=== PATIENT | female | born 1995 | race American Indian/Alaskan Native ===

== ENCOUNTER 2017-04-28 10:32 | Emergency (ER) | payer OTHER ==
[2017-04-28 10:46] VITALS: BMI 18.8
[2017-04-28 10:51] VITALS: TEMP 98.9
[2017-04-28] MEDS ORDERED: Bacitracin 500 Units/gm Oint Foilpak UD ONE (11:06)
[2017-04-28 11:10] LABS: HCG,QUALITATIVE URINE NEGATIVE (NEGATIVE)
[2017-04-28 11:14] LABS: SQUAMOUS EPITHIAL 10 /hpf (0-5); URINE BILIRUBIN NEGATIVE (NEGATIVE); URINE BLOOD NEGATIVE (NEGATIVE); URINE CLARITY Clear (Clear); URINE COLOR Yellow (YELLOW); URINE GLUCOSE (UA) NORMAL (Normal); URINE LEUKOCYTE ESTERASE NEG Leu/uL (Negative); URINE NITRATE NEGATIVE (NEGATIVE); URINE PROTEIN NEGATIVE (NEGATIVE); URINE UROBILINOGEN NORMAL mg/dL (0.2-1.0)
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
[2017-04-28 11:41] VITALS: BP 119/71; PULSE 72; RESP 18
[2017-04-28 11:52] VITALS: O2SAT 98
== END 2017-04-28 11:42 | disposition home or self-care (01) ==
LOC: C.ER 10:32
DX: N39.0 Urinary tract infection, site not specified (principal); S40.812A Abrasion of left upper arm, initial encounter; S40.811A Abrasion of right upper arm, initial encounter; Y04.2XXA Assault by strike against or bumped into by another person, initial encounter; Y92.9 Unspecified place or not applicable

== ENCOUNTER 2018-09-30 14:13 | Emergency (ER) | payer OTHER ==
[2018-09-30 14:13] VITALS: BMI 18.8
[2018-09-30 14:18] VITALS: RESP 20
[2018-09-30 15:16] LABS: HCG,QUALITATIVE URINE NEGATIVE (NEGATIVE)
[2018-09-30 15:17] LABS: SQUAMOUS EPITHIAL 7 /hpf (0-5); URINE BILIRUBIN 1+ (NEGATIVE); URINE BLOOD NEGATIVE (NEGATIVE); URINE CLARITY Clear (Clear); URINE COLOR Yellow (YELLOW); URINE GLUCOSE (UA) NORMAL (Normal); URINE LEUKOCYTE ESTERASE NEG Leu/uL (Negative); URINE PROTEIN 1+ mg/dL (NEGATIVE)
[2018-09-30] MEDS ORDERED: Sodium Chloride 0.9% 1,000 ML IV STA (15:23)
[2018-09-30] MEDS ORDERED: Sodium Chloride 0.9% 1,000 ML ONE ×2 (15:38→17:15)
[2018-09-30 16:00] LABS: BASO % 0.7 % (0.0-2.0); EOS % 0.2 % (0.0-4.0); HEMOGLOBIN 13.1 g/dL (11.0-16.0); LYMPH # 0.7 K/uL (1.0-4.3); MEAN CELL VOLUME 88.4 fL (81.0-99.0); MEAN CORPUSCULAR HEMOGLOBIN 30.2 pg (27.0-31.0); MEAN CORPUSCULAR HGB CONC 34.1 g/dL (33.0-37.0); MEAN PLATELET VOLUME 7.6 fL (7.2-11.7); MONO # 0.6 K/uL (0.0-0.8); MONO % 8.2 % (0.0-10.0); NEUT % 80.9 % (50.0-75.0); RBC 4.36 Mil/uL (3.80-5.20); RED CELL DISTRIBUTION WIDTH 13.5 % (11.5-14.5); WHITE BLOOD COUNT 7.5 K/uL (4.8-10.8)
[2018-09-30 16:17] LABS: ALB/GLOB RATIO 1.4 (1.0-2.1); ALBUMIN 4.4 g/dL (3.5-5.0); ALT/SGPT 30 U/L (9-52); AMYLASE 88 U/L (30-110); AST/SGOT 27 U/L (14-36); BLOOD UREA NITROGEN 17 mg/dL (7-17); CALCIUM 8.9 mg/dl (8.6-10.4); GFR NON-AFRICAN AMERICAN > 60; LIPASE 62 U/L (23-300)
--- NOTE | 2018-09-30 16:33 | C.PDOC ---
History Of Present Illness 23 year old female presents to the ED complaining of generalized body aches, abdominal pain, nausea, vomiting, and one episode of diarrhea for one day. Reports she went to [facility] yesterday and was given Zofran by kettle coordinator but left without seeing because she had been waiting 6 hours. Denies any fever, chills, cough, shortness of breath, urinary symptoms, or back pain. Time Seen by Provider: 09/30/18 14:50 Chief Complaint (Nursing): Flu-like Symptoms Past Medical History Vital Signs: Last Vital Signs Temp 98 F 09/30/18 14:15 Pulse 89 09/30/18 14:15 Resp 20 09/30/18 14:15 BP 100/60 09/30/18 14:15 Pulse Ox 100 09/30/18 14:15 Family History: States: Unknown Family Hx - Social History Hx Tobacco Use: No Hx Alcohol Use: No Hx Substance Use: Yes - Immunization History Hx Tetanus Toxoid Vaccination: No Hx Influenza Vaccination: Yes Hx Pneumococcal Vaccination: No Review Of Systems Except As Marked, All Systems Reviewed And Found Negative. Constitutional: Positive for: Other (generalized body aches ). Negative for: Fever, Chills ENT: Negative for: Ear Pain, Throat Pain Respiratory: Negative for: Shortness of Breath Gastrointestinal: Positive for: Nausea, Vomiting, Abdominal Pain, Diarrhea Genitourinary: Negative for: Dysuria, Hematuria Musculoskeletal: Negative for: Back Pain Physical Exam - Physical Exam Appears: Non-toxic, Other (ill appearing, weak) Skin: Warm, Dry, No Rash Head: Normacephalic Eye(s): bilateral: Normal Inspection Nose: Normal Oral Mucosa: Dry Neck: Normal ROM, Supple Chest: Symmetrical Cardiovascular: Rhythm Regular Respiratory: Normal Breath Sounds, No Rales, No Rhonchi, No Wheezing Gastrointestinal/Abdominal: Soft, Tenderness (diffused tenderness), No Guarding, No Rebound Neurological/Psych: Oriented x3, Normal Speech Gait: Steady ED Course And Treatment - Laboratory Results Result Diagrams: 09/30/18 15:46 09/30/18 15:46 O2 Sat by Pulse Oximetry: 100 (RA) Pulse Ox Interpretation: Normal Progress Note: Patient given IV fluids and Zofran. Blood and urine collected and sent to lab for analysis. On reassessment, patient is resting comfortably, abdomen remains soft, and patient is tolerating PO. Patient feels comfortable going home. Patient will be discharged home. Disposition - Disposition Referrals: Raudel Ryder MD [Staff Provider] - Disposition: HOME/ ROUTINE Disposition Time: 18:01 Condition: STABLE Additional Instructions: Follow up with PMD within 1-2 days. Return to ED if feel worse. 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 - Scribe Statement The provider has reviewed the documentation as recorded by the Scribe Erica Dinh All medical record entries made by the Scribe were at my direction and personally dictated by me. I have reviewed the chart and agree that the record accurately reflects my personal performance of the history, physical exam, medical decision making, and the department course for this patient. I have also personally directed, reviewed, and agree with the discharge instructions and disposition.
[2018-09-30] MEDS ORDERED: Sodium Chloride 0.9% 1,000 ML IV ONE (17:11)
[2018-09-30 18:12] VITALS: BP 105/67; PULSE 78; TEMP 99
[2018-09-30 18:45] VITALS: O2SAT 100
== END 2018-09-30 18:33 | disposition home or self-care (01) ==
LOC: C.ER 14:13
DX: B34.9 Viral infection, unspecified (principal)
CPT/HCPCS: 80053; 81001; 82150; 82550; 83605; 83690; 84703; 85025; 87804; 96361; 96374; 99284; J2405; J7030

== ENCOUNTER 2018-10-28 06:36 | Emergency (ER) | payer OTHER | END 2018-10-28 11:39 | disposition home or self-care (01) | LOC: C.ER 06:36 ==

== ENCOUNTER 2019-02-24 16:41 | Emergency (ER) | payer OTHER ==
[2019-02-24 16:59] VITALS: RESP 18; O2SAT 100; BMI 19.5
[2019-02-24 17:37] LABS: BASO % 0.5 % (0.0-2.0); EOS % 0.4 % (0.0-4.0); HEMOGLOBIN 11.5 g/dL (11.0-16.0); LYMPH # 1.2 K/uL (1.0-4.3); LYMPH % 17.6 % (20.0-40.0); MEAN CELL VOLUME 89.2 fL (81.0-99.0); MEAN CORPUSCULAR HGB CONC 33.6 g/dL (33.0-37.0); MEAN PLATELET VOLUME 7.6 fL (7.2-11.7); MONO # 0.6 K/uL (0.0-0.8); MONO % 8.4 % (0.0-10.0); NEUT % 73.1 % (50.0-75.0); NRBC % 0.1 % (0.0-2.0); RBC 3.82 Mil/uL (3.80-5.20); RED CELL DISTRIBUTION WIDTH 12.7 % (11.5-14.5); WHITE BLOOD COUNT 6.8 K/uL (4.8-10.8)
[2019-02-24] MEDS ORDERED: Sodium Chloride 0.9% 1,000 ML IV ONE (17:39)
[2019-02-24 17:47] LABS: HCG,QUALITATIVE URINE NEGATIVE (NEGATIVE)
[2019-02-24 17:49] LABS: ALB/GLOB RATIO 1.3 (1.0-2.1); ALBUMIN 4.1 g/dL (3.5-5.0); ALT/SGPT 12 U/L (9-52); AST/SGOT 19 U/L (14-36); BLOOD UREA NITROGEN 10 mg/dL (7-17); CALCIUM 9.5 mg/dl (8.6-10.4); GFR NON-AFRICAN AMERICAN > 60; LIPASE 54 U/L (23-300)
[2019-02-24 17:51] LABS: SQUAMOUS EPITHIAL 3 /hpf (0-5); URINE BILIRUBIN NEGATIVE (NEGATIVE); URINE BLOOD NEGATIVE (NEGATIVE); URINE CLARITY Hazy (Clear); URINE COLOR Yellow (YELLOW); URINE GLUCOSE (UA) NORMAL (Normal); URINE HYALINE CAST 0-2 /lpf (0-2); URINE LEUKOCYTE ESTERASE NEG Leu/uL (Negative); URINE PROTEIN NEGATIVE (NEGATIVE)
[2019-02-24] MEDS ORDERED: Sodium Chloride 0.9% 1,000 ML ONE (18:04)
--- NOTE | 2019-02-24 18:17 | C.PDOC ---
History Of Present Illness 24 year old female presents to the ED complaining of right lower quadrant pain for 4 days. Pain is described as soreness and she reports it radiates to her back sometimes. Patient reports history of similar pain in the past when she was diagnosed with an ovarian cyst; patient had laparoscopic cyst removal. She denies seeing OBGYN for current complaints. Patient also denies nausea, vomiting, diarrhea, dysuria, hematuria, fever. Time Seen by Provider: 02/24/19 17:09 Chief Complaint (Nursing): Abdominal Pain History Per: Patient History/Exam Limitations: no limitations Onset/Duration Of Symptoms: Days (4) Current Symptoms Are (Timing): Still Present Severity: Mild Location Of Pain/Discomfort: RLQ Quality Of Discomfort: "Pain" Associated Symptoms: denies: Fever, Chills, Nausea, Vomiting, Diarrhea, Urinary Symptoms Past Medical History Reviewed: Historical Data, Nursing Documentation, Vital Signs Vital Signs: Last Vital Signs Temp 99.2 F 02/24/19 16:46 Pulse 84 02/24/19 16:46 Resp 18 02/24/19 16:46 BP 109/70 02/24/19 16:46 Pulse Ox 100 02/24/19 16:46 Primary Care Provider: Tee Muñiz - Medical History PMH: No Chronic Diseases Other Surgeries: Hx of surgeries - lapascopic removal of ovarian cyst Family History: States: No Known Family Hx - Social History Hx Tobacco Use: No Hx Alcohol Use: No Hx Substance Use: Yes (occassionally) - Immunization History Hx Tetanus Toxoid Vaccination: No Hx Influenza Vaccination: No Hx Pneumococcal Vaccination: No Review Of Systems Constitutional: Negative for: Fever, Chills Gastrointestinal: Positive for: Abdominal Pain. Negative for: Nausea, Vomiting, Diarrhea Genitourinary: Negative for: Dysuria, Hematuria Musculoskeletal: Positive for: Back Pain Physical Exam - Physical Exam Appears: Well, Non-toxic, No Acute Distress Skin: Warm, Dry, No Rash Head: Normacephalic Eye(s): bilateral: Normal Inspection Oral Mucosa: Moist Neck: Supple Cardiovascular: Rhythm Regular Respiratory: Normal Breath Sounds, No Rales, No Rhonchi, No Wheezing Gastrointestinal/Abdominal: Bowel Sounds, Soft, Tenderness (RLQ/adnexal mild tenderness to palpation), No Guarding, No Rebound Back: No CVA Tenderness Neurological/Psych: Oriented x3 Gait: Steady ED Course And Treatment - Laboratory Results Result Diagrams: 02/24/19 17:33 02/24/19 17:33 Lab Results: Total Bilirubin 0.3 mg/dL (0.2-1.3) 02/24/19 17:33 AST 19 U/L (14-36) 02/24/19 17:33 ALT 12 U/L (9-52) 02/24/19 17:33 Alkaline Phosphatase 55 U/L (38-126) 02/24/19 17:33 Total Protein 7.5 g/dL (6.3-8.3) 02/24/19 17:33 Albumin 4.1 g/dL (3.5-5.0) 02/24/19 17:33 Globulin 3.3 gm/dL (2.2-3.9) 02/24/19 17:33 Albumin/Globulin Ratio 1.3 (1.0-2.1) 02/24/19 17:33 Lipase 54 U/L (23-300) 02/24/19 17:33 Urine Color Yellow (YELLOW) 02/24/19 17:33 Urine Clarity Hazy (Clear) 02/24/19 17:33 Urine pH 7.0 (5.0-8.0) 02/24/19 17:33 Ur Specific Manning 1.019 (1.003-1.030) 02/24/19 17:33 Urine Protein Negative mg/dL (NEGATIVE) 02/24/19 17:33 Urine Glucose (UA) Normal mg/dL (Normal) 02/24/19 17:33 Urine Ketones Negative mg/dL (NEGATIVE) 02/24/19 17:33 Urine Blood Negative (NEGATIVE) 02/24/19 17:33 Urine Nitrate Negative (NEGATIVE) 02/24/19 17:33 Urine Bilirubin Negative (NEGATIVE) 02/24/19 17:33 Urine Urobilinogen 2.0 mg/dL (0.2-1.0) H 02/24/19 17:33 Ur Leukocyte Esterase Neg Nadine/uL (Negative) 02/24/19 17:33 Urine WBC (Auto) 1 /hpf (0-5) 02/24/19 17:33 Urine RBC (Auto) 1 /hpf (0-3) 02/24/19 17:33 Ur Squamous Epith Cells 3 /hpf (0-5) 02/24/19 17:33 Hyaline Casts 0-2 /lpf (0-2) 02/24/19 17:33 Urine HCG, Qual Negative (NEGATIVE) 02/24/19 17:33 Urine HCG, Qual Negative (NEGATIVE) 02/24/19 17:33 O2 Sat by Pulse Oximetry: 100 (RA) Pulse Ox Interpretation: Normal Progress Note: Blood work, UA, US of abdomen and transvaginal US ordered. Patie nt given IV NS bolus, IV Toradol. Disposition - Disposition Disposition Time: 19:00 Condition: STABLE Forms: [employer] (Citizen [place]) - Clinical Impression Clinical Impression: RLQ abdominal pain - Scribe Statement The provider has reviewed the documentation as recorded by the Scribe Erica Dinh All medical record entries made by the Scribe were at my direction and personally dictated by me. I have reviewed the chart and agree that the record accurately reflects my personal performance of the history, physical exam, medical decision making, and the department course for this patient. I have also personally directed, reviewed, and agree with the discharge instructions and disposition. Physician Patient Turnover Patient Signed Over To: Imelda Ruiz Handoff Comments: pending ultrasounds of pelvis and RLQ
[2019-02-24 20:47] VITALS: BP 109/65; PULSE 79; TEMP 98.6
--- NOTE | 2019-02-25 09:24 | US ---
Date of service: 02/24/2019 PROCEDURE: Right lower quadrant/limited abdominal ultrasound. HISTORY: Right lower quadrant pain, evaluate appendix. COMPARISON: February 24, 2019. Pelvic ultrasound reported separately TECHNIQUE: Graded compression technique. FINDINGS: Appendix: Not visualized. Free fluid in the right lower quadrant. Although incompletely visualized this measures approximately 3.3 x 8 cm. No masses or other significant findings right lower quadrant. Peristalsing bowel noted. Incidental finding(s): Complex mass/fluid identified in the pelvis/right adnexa. IMPRESSION: Nondiagnostic study of the appendix which is not visible on the current study. Right lower quadrant and pelvic fluid. Incompletely visualized right adnexal mass. Concordant findings (preliminary report) provided by [facility].
--- NOTE | 2019-02-25 09:30 | US ---
Date of service: 02/24/2019 HISTORY: right pelvic pain r/o torsion COMPARISON: February 24, 2019. Right lower quadrant abdominal ultrasound. 10/28/2018 pelvic ultrasound. Summary of findings on the comparison examination: Complex cyst right ovary. Apparent dermoid. TECHNIQUE: Transabdominal, transvaginal. Real -time technique with 2D, duplex and color Doppler. FINDINGS: UTERUS: Measures 3.6 x 8.9 x 4.8 cm. Normal in size and appearance. No fibroid or other mass lesion seen. ENDOMETRIUM: Measures 6.0 mm in diameter. No ultrasound findings to suggest gestational sac, fluid, debris, mass or polyp or other pathologic process within the endometrium. CERVIX: No cervical abnormality identified. RIGHT OVARY: Complex right adnexal mass 10.7 x 15.2 x 14.97 cm. This is increased considerably since the prior study. There solid and cystic components is well as ultrasound findings consistent with known dermoid. The largest cystic component measures 9.8 x 7 1 x 10.4 cm. The adjacent smaller cystic component measures 6.1 x 7 x 6.2 cm. LEFT OVARY: Measures 2.4 x 4.1 x 3.3 cm. No solid mass. Normal flow. Complex cyst or adjacent follicles 1.2 x 1.7 cm noted. FREE FLUID: Free fluid demonstrated, incompletely visualized. There appears to be debris as well within the fluid. OTHER FINDINGS: None. IMPRESSION: 1. Marked increase in size of the right adnexa with complex cystic components and a smaller more solid component consistent with dermoid. The substantial increase in side suggests superimposed acute process. Tubo-ovarian abscess, hydrosalpinx should be considered. 2. Unremarkable uterus and endometrial echo complex. 3. Complex free fluid identified. 4. Additional benign and/or incidental findings described above. Concordant findings (preliminary report) provided by [facility].
== END 2019-02-24 21:35 | disposition home or self-care (01) ==
LOC: C.ER 16:41
DX: R10.31 Right lower quadrant pain (principal); N83.201 Unspecified ovarian cyst, right side
CPT/HCPCS: 76705; 76830; 76856; 80053; 81001; 83690; 84703; 85025; 96361; 96374; 99284; J1885; J7030